=== PATIENT | female | born 1990 | race Caucasian/White ===

== ENCOUNTER 2023-05-31 02:56 | Emergency (ER) | payer BC, OTHER ==
[~2023-05-31] VITALS: Ht 165.1 cm; Wt 77.1 kg
[2023-05-31] MEDS ORDERED: HALOPERIDOL LACTATE INJ 5 MG/ML VIAL ONE (03:23)
[2023-05-31] MEDS ORDERED: HALOPERIDOL LACTATE INJ 5 MG/ML VIAL IM ONE (03:30)
[2023-05-31 07:21] VITALS: BP 128/74; TEMP 98.2; O2SAT 100
== END 2023-05-31 07:21 | disposition home or self-care (01) ==
LOC: ER 03:05
DX: F12.151 Cannabis abuse with psychotic disorder with hallucinations (principal); Z60.2 Problems related to living alone
CPT/HCPCS: 99283; 96372; J1630